=== PATIENT | male | born 1970 | race Caucasian/White ===

== ENCOUNTER 2021-05-17 14:09 | Emergency (ER) | payer OTHER ==
[2021-05-17] MEDS ORDERED: DEXAMETHASONE 10 MG/ML VIAL PO STA (15:50)
[2021-05-17] MEDS ORDERED: CHERRY SYRUP 10 ML UDC PO ONE (15:50)
--- NOTE | 2021-05-17 15:50 | ED Physician Documentation ---
PD HPI URI - Stated complaint Stated Complaint: C+ COUGH/SOA - Chief complaint Chief Complaint: General - History obtained from History obtained from: Patient, Family - History of Present Illness Timing - onset: How many days ago (10) Timing duration: Days (10) Timing details: Gradual onset, Still present Associated symptoms: Fever, Chills, Sweats, Nasal congestion, Rhinorrhea, Dry cough Contributing factors: Sick contact ( and daughter sick with covid) Improves by: Rest, Medication Worsened by: Activity Similar symptoms before: Has not had sx before Recently seen: Not recently seen - Additional information Additional information: 51-year-old male has developed COVID-19. He indicates that he had dinner with some friends were unvaccinated before his symptoms started his symptoms began about 10 to 12 days ago and he has developed a hacking cough. He has no sputum from the cough. He has had fever chills myalgias. He has been vaccinated with Moderna and had his last shot in October of this year. Review of Systems Constitutional: reports: Fever, Chills, Myalgias, Fatigue, Sweats Eyes: denies: Decreased vision Ears: denies: Ear pain Nose: reports: Congestion. denies: Rhinorrhea / runny nose Throat: reports: Sore throat Cardiac: denies: Chest pain / pressure, Palpitations Respiratory: reports: Cough. denies: Dyspnea, Hemoptysis GI: denies: Nausea, Vomiting, Diarrhea : denies: Dysuria, Frequency PD PAST MEDICAL HISTORY - Present Medications Home Medications: Ambulatory Orders Medication Instructions Recorded Confirmed Codeine Phosphate/Guaifenesin 5 - 10 ml PO Q6HR PRN #120 ml 05/17/21 [Guaifen-Codeine 100-10 mg/5 ml] dexAMETHasone [Decadron] 4 mg PO DAILY #5 tablet 05/17/21 - Allergies Allergies/Adverse Reactions: Allergies Allergy/AdvReac Type Severity Reaction Status Date / Time No Known Drug Allergies Allergy Verified 05/17/21 14:43 PD ED PE NORMAL - Vitals Vital signs reviewed: Yes (Hypertensive) - General General: Alert and oriented X 3, No acute distress, Well developed/nourished - HEENT HEENT: Atraumatic, PERRL, EOMI - Neck Neck: Supple, no meningeal sign, No bony TTP - Cardiac Cardiac: RRR, No murmur - Respiratory Respiratory: No respiratory distress, Clear bilaterally - Abdomen Abdomen: Soft, Non tender - Back Back: No CVA TTP, No spinal TTP - Derm Derm: Normal color, Warm and dry, No rash - Extremities Extremities: No deformity, No edema - Neuro Neuro: Alert and oriented X 3, 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, No motor deficit, No sensory deficit, Normal speech Eye Opening: Spontaneous Motor: Obeys Commands Verbal: Oriented GCS Score: 15 - Psych Psych: Normal mood, Normal affect Results - Vitals Vitals: Vital Signs - 24 hr 05/17/21 05/17/21 14:41 16:30 Temperature 36.3 C L Heart Rate 64 63 Respiratory 18 18 Rate Blood Pressure 132/97 H 144/89 H O2 Saturation 97 99 Oxygen O2 Source Room air PD MEDICAL DECISION MAKING - ED course Complexity details: reviewed results, re-evaluated patient, considered differential, d/w patient, d/w family ED course: 51-year-old male with nearly 10 days of symptoms of Covid as tested positive at home. He is not hypoxic he has clear lungs on examination and is not making sputum with his cough. The patient does not feel a chest x-ray is necessary. I agreed with the patient and we will provide him symptomatic care including dexamethasone and cough suppressant. He would not likely benefit from Regeneron. Departure - Departure Disposition: 01 Home, Self Care Clinical Impression: COVID-19 Instructions: COVID-19 [facility], Flu and Cold: Nutrition, Prevention and Treatment Tips Follow-Up: [facility] [Provider Group] Prescriptions: Codeine Phosphate/Guaifenesin [Guaifen-Codeine 100-10 mg/5 ml] 5 - 10 ml PO Q6HR PRN #120 ml PRN Reason: Cough dexAMETHasone [Decadron] 4 mg PO DAILY #5 tablet Discharge Date/Time: 05/17/21 16:35
[2021-05-17 16:39] VITALS: BP 144/89
== END 2021-05-17 16:35 | disposition home or self-care (01) ==
LOC: ED 14:09
DX: U07.1 COVID-19 (principal)
CPT/HCPCS: 99282; 99284; A9270